=== PATIENT | male | born 1955 | race Caucasian/White ===

== ENCOUNTER 2024-11-06 22:28 | Emergency (ER) | payer MEDICARE, MEDICAID ==
[~2024-11-06] VITALS: Ht 177.8 cm; Wt 80.0 kg
[2024-11-06 22:36] VITALS: PULSE 63; RESP 16; O2SAT 97
[2024-11-06] MEDS ORDERED: NOREPINEPHRINE 8MG/250ML PMX 250 ML IV ONE (23:00)
== END 2024-11-07 02:02 ==
LOC: ER 22:28
DX: I46.9 Cardiac arrest, cause unspecified (principal); J96.01 Acute respiratory failure with hypoxia; I50.9 Heart failure, unspecified
CPT/HCPCS: 99285; 92950; 31500; 82962; 93005; J3490; 94002